=== PATIENT | male | born 1970 | race Caucasian/White ===

== ENCOUNTER 2016-09-11 16:56 | Emergency (ER) | payer SELFPAY ==
[~2016-09-11] VITALS: Ht 165.1 cm; Wt 61.2 kg
[~2016-09-11 16:56] MED LIST: CIPRO 500MG TA500 MG PO
[2016-09-11 17:26] LABS: HEMOGLOBIN 15.8 g/dL (14.1-18.0); LYMPH # 2.8 K/mm3 (0.7-4.5); LYMPH % 22.2 % (10-50)
--- NOTE | 2016-09-11 17:32 | Emergency Room Report ---
History of Present Illness Time Seen by [id number] Presenting Problem in Triage Pt arrived:Walked Presenting Problem:PT REPORTS TINGLING SENSATION IN SEA HANDS AND UP R ARM. PT REPORTS FEELING TINGLING IN R FOOT. PT REPORTS HE WOKE UP WITH SYMPTOMS ON MONDAY, REPORTS HE FELT LIKE HIS R LEG WAS ASLEEP ON MONDAY WHEN HE WOKE UP BUT STATES AND LIKE HE HAD NO CONTROL OVER R LEG, STATES THIS LASTED APPROX 1 HOUR AND STATES SYMPTOMS DESCRIBED ABOVE HAVE BEEN INTERMITTENT SINCE MONDAY. 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 N Clinical Suspician of Infection? N Mental Status: 1 - Regular (Normal Baseline) Sepsis Risk:Low Sepsis Risk Have you (or family members/close friends) recently traveled outside the [place]? N If Yes, where/when: Have you had exposure to infectious disease within the past month? N TB? Other? Specify: 45-year-old white male with history of migraine woke up 2 days ago with RIGHT ankle weakness and the RIGHT hemianesthesia. The weakness is that the numbness on the RIGHT side of the body continue. IT FEELS LIKE A burning sensation. He had occasional sharp chest pain to the LEFT side of the chest, NO PALPITATION, NO SOA, NO NVD. THE PATIENT INFORMED ME THAT THE NUMBNESS CHANGES WITH HIS NECK MOVEMENT. HE HAS A CHRONIC NECK PAIN. Source patient, RN notes reviewed Exam Limitations no limitations ALLERGIES Coded Allergies: metoclopramide (From REGLAN) (Mild, 06/27/15) Home Medications Reported Medications No Known Home Medications History Medical History General CAD? No Angina: No PR: No Hypertension? No Hyperlipidemia? No CHF? No DVT? No PE? No COPD? No Asthma? No Anemia? No GERD? No Gastric ulcers? Yes GI Bleed? No Hernia? No Thyroid Problems? No Hypothyroidism? No CVA? No Seizures? No Diabetes? No Renal Insuffiency? No End Stage Renal Disease? No UTI? No Stones? No BPH? No GB Disease: No Nephritic Syndrome? No Asplenia? No Hepatitis? No Sickle Cell Disease? No Arthritis? No Migraines? Yes Cataracts? No Glaucoma? No MRSA? No HIV? No TB? No Anxiety? No Depression? No Cancer? No More? 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 Respiratory no symptoms reported Cardiovascular no symptoms reported Gastrointestinal no symptoms reported Genitourinary no symptoms reported. Musculoskeletal no symptoms reported Skin no symptoms reported Psychiatric/Neurological see HPI, numbness Physical Exam Vital Signs Vital Signs Date Time Temp Pulse Resp B/P Pulse O2 O2 Flow FiO2 Ox Delivery Rate 09/11 1756 98.2 61 18 121/74 98 09/11 1703 98.0 81 18 158/102 98 - WBC >12,000 or <4,000 or 10% bands? 2 or more SIRS Criteria Met? B/P:158/102 MAP:120 Creatinine >2.0? UA output<0.5ml/kg/hr for 2 hrs? Platelet count >100,000? Lactate >2.0mmol/1? INR >1.2 or PTT > than 60 sec? Evidence of Organ Dysfunction? Provider documented clinical suspician of infection? N Sepsis Criteria Count: 0 Sepsis Risk: Low Sepsis Risk General Appearance normal appearance, WD/WN Eye Exam - bilateral eye normal exam, bilateral eye PERRL, bilateral eye EOMI Ear, Nose, Throat hearing grossly normal, normal ENT inspection Neck normal inspection, non-tender, supple, full range of motion Respiratory Status Yes: trachea midline, chest symmetrical, non tender chest. No: respiratory distress. Lung Sounds bilateral: normal breath sounds, lungs clear. Cardiovascular normal exam, regular rate/rhythm, no peripheral edema, no gallop, no JVD, no murmur, no rub, normal peripheral pulses Peripheral Pulses Pulses normal Yes Gastrointestinal normal bowel sounds, normal exam, non tender, soft, no organomegaly Back normal inspection, no CVA tenderness, no vertebral tenderness Extremities non-tender, normal range of motion, normal inspection Neurologic alert, staff development educator II-XII nml as tested, normal exam, oriented x 3, INTACT CRANIAL NERVES MOTORO 5/5 BILATERAL AND SYMMETRICAL R HEMIANESTHESIA NEGATIVE ROMBERGISM AND CEREBALLR FUNCTION. WALKED TANDEM. Reflexes Reflexes normal Yes Skin intact, normal color, warm/dry Medical Decision Making LABS/Meds/Orders Pt receiving controlled substance in ED? No Results/Orders Laboratory Tests 09/11/161711: Creatine Kinase 86, CK-MB (CK-2) Rel Index 0.6, CK and CKMB Interp < 0.5, Troponin I < 0.02 09/11/161711: Sodium 138, Potassium 3.7, Chloride 101, Carbon Dioxide 31, BUN 12, Creatinine 1.1, Estimated Creat Clear 72, Estimated GFR (MDRD) 72, Glucose 154 H, Calcium 8.9, Total Bilirubin 0.3, AST 15, ALT 20, Alkaline Phosphatase 73, Total Protein 7.9, Albumin 4.1, Globulin 3.8 H, Albumin/Globulin Ratio 1.1, D-Dimer < 100, WBC 12.6 H, RBC 5.17, Hgb 15.8, Hct 47.3, MCV 91.5, RDW 13.9, Plt Count 358, MPV 7.8, Gran % 69.0, Gran # 8.7 H, Lymphocytes % 22.2, Monocytes % 3.0, Eosinophils % 4.8, Basophils % 1.0, Lymphocytes # 2.8, Monocytes # 0.4, Eosinophils # 0.6 H, Basophils # 0.1, PUBS MCHC 33.4, MCH 30.5 Current Medication Orders Sig/Danni Start time Last Medication Dose Route Stop Time Status Admin Sodium Chloride 10 ML PRN PRN 09/11 1730 AC IV 09/12 1717 Orders Procedure Date/time Status DIET-NOTHING BY MOUTH 09/12 B Active [id number] FAT/LO CHO/ROMAN 09/12 B Active DRUG ABUSE SCREEN (10) 09/11 1843 Active CARDIAC ENZYMES 09/11 1801 Complete ELECTROCARDIOGRAM REQUEST 09/[address] HEAD REQ 09/11 172 Complete D-DIMER 09/11 172 Complete IV SALINE LOCK 09/11 171 Active CBC WITH AUTO DIFF 09/11 171 Complete CHEM 12 PROFILE 09/11 171 Complete 12 LEAD EKG-HARIKA (INITIAL) 09/11 UNK Active CM/EKG CM/EKG EKG NORMAL SINUS RHYTHM 76/M right AXIS DEVIATION BUNDLE BRANCH BLOCK NO ACUTE FINDING Departure Departure Time of Disposition 1731 Disposition DC[facility] ER to [facility].. Hosp Clinical Impression Primary Impression: Hemianesthesia Secondary Impressions: Abnormal EKG, Cervical radiculopathy, CVA (cerebral vascular accident) Condition STABLE Additional Instructions I DISCUSSED WITH THE PATIENT HIS CT LABS AND EXAM . I CALLED [facility] WHO ADVISED TO SEND HIM FOR WORK UP , MRI HEAD AND CERVICAL REGION TO DIAGNOSE HIM. I DISCUSSED WITH THE PATIENT WHO WAS AGREEABL BUT HE DECLINED AN AMBULANCE TRANSPORT, HE WNATS TO GO WITH FAMILY , HE UNDERSTANDS THE RISKS. WILI RINCON. Discharge Counseling Counseled pt/family regarding diagnosis, test results, home care, follow up needs Prescriptions Current Visit Scripts No Known Home Medications ED Critical Care Critical Care No If Critical Care minutes are documented, the time involved in the performance of seperately reportable procedures was not counted toward critical care time documented. I directly delivered medical care to this critically ill and/or injured patient. Timely evaluation and treatment was necessary to address the significant organ system(s) dysfunction present in this patient. at 184
--- NOTE | 2016-09-11 18:03 | RADIOLOGY REPORT PS360 ---
CT HEAD WITHOUT CONTRAST CT BONE WINDOWS included ORDERING PHYSICIAN : Phoenix Regalado MD PATIENT AGE: 46 years GENDER: Male PROCEDURE: Routine axial images headwithout contrast. Brain & bone windows HISTORY: R HEMIANESTHESIA numbness both hands. And right leg COMPARISON: None available FINDINGS: No acute intracranial findings. No hemorrhage. No mass effect or mass lesion. No subdural nor extra-axial collection. Ventricles & basal cisterns appear satisfactory. Ragland & white matter patterns satisfactory. The posterior fossa appear satisfactory and unremarkable. The skull is intact. Only note minor mucosal thickening at the inferior right frontal sinus and at the ethmoid air cells bilaterally. No air-fluid levels.. Mastoid air cells, middle ear & IACs are unremarkable. IMPRESSION: No acute intracranial findings. Brain within normal limits.. Skull intact
[2016-09-11 19:04] VITALS: BP 137/97
--- OUTSIDE RECORDS SUMMARY | 2016-09-12 19:19 | External Medical Summary Rpt ---
Author Author , FLORENCE HENRIQUEZ Address Unknown Phone [email or web address] Care Team Providers Care Operational Meteorologist Name Role Phone DEBBIE MAR, DEBBIE Unavailable Unavailable [facility], Unavailable Unavailable [facility] Unavailable Unavailable INC, [facility], [facility] Unavailable Unavailable [facility] Unavailable Unavailable [facility], [facility], Unavailable Unavailable [facility], [facility]available Unavailable [facility], [facility] Unavailable Un[facility] Unavailable Unavailable H[facility]PITALS, [facility] Unavailable Unavailable Purpose Continuity of Care Document - 06-07-2012 through 2016 Problems Code Diagnosis DOS Provider Status [id number] MIGRAINE 06-27-2015 [facility] NOT PHYSICIANS, INTRACT W/O PLLC STATUS MIGRAINOSUS Z720 TOBACCO USE 06-27-2015 [facility] R51 HEADACHE 05-22-2015 [facility] 7840 HEADACHE 11-08-2013 [facility] 4619 ACUTE 10-29-2013 [facility] SINUSITIS, N EMERGENCY UNSPECIFIED PHYS 4660 ACUTE 10-29-2013 [facility] 470 DEVIATED 10-29-2013 [facility] 4732 CHRONIC 10-29-2013 [facility] 18582 OBST 10-29-2013 [facility] CHRONIC N EMERGENCY BRONCHITIS PHYS W/ACUTE BRONCHITIS 496 CHRONIC 10-29-2013 [facility] OBSTRUCTION NEC 7842 SWELLING 10-29-2013 [facility] IN [facility] HEAD AND NECK 89753 SHORTNESS 10-29-2013 [facility] 7862 COUGH 10-29-2013 [facility] G43.909 MIGRAINE, UNSP, NOT INTRACTABLE , WITHOUT STATUS MIGRAINOSUS I63.9 CEREBRAL INFARCTION, UNSPECIFIED M54.12 RADICULOPAT HY, CERVICAL REGION R20.0 ANESTHESIA OF SKIN R94.31 ABNORMAL ELECTROCARD IOGRAM [ECG] [EKG] Results Labs Lab Lab Date Result Refere Interp Status Commen Order Detail nces retati t Range on BASIC METABOLIC PANEL BMP (06-13-2012 04:20) BUN/CRE 8 ratio 6 - 25 complet RATIO 013 ed 04:20 CALCIUM 8.4 8.50 - Below complet 013 mg/dl 10.10 low ed 04:20 normal GFR 60 complet 013 ml/min ed 04:20 AGE 05 41 yrs complet 013 ed 04:20 CREATIN 1.0 0.60 - complet INE 013 mg/dl 1.30 ed 04:20 BUN 8 mg/dl 7 - 18 complet 013 ed 04:20 GLUCOSE 121 70 - Above complet 013 mg/dl 120 high ed 04:20 normal ANION 11 5 - 15 complet GAP 013 mmol/L ed 04:20 TOTAL 27 21 - 32 complet CO2 013 mmol/L ed 04:20 CHLORID 100 98 - complet E 013 mmol/L 107 ed 04:20 POTASSI 4.0 3.50 - complet UM 013 mmol/L 5.10 ed 04:20 SODIUM 134 136 - Below complet 013 mmol/L 145 low ed 04:20 normal OSMOLAL 268 272 - Below complet ITY 013 295 low ed 04:20 normal GLOMERU complet 013 LAR ed 04:20 FILTRAT ION RATE INTERPR ETATION Normal complet 013 Range: ed 04:20 60 Ml/min/ 1.73 sq meters If complet 013 patient ed 04:20 is Ade n, multipl y GFR by 1.120. *GFR complet 013 only ed 04:20 applies to adults over the age 18. CBC W DIFF AUTOMATED (06-13-2012 04:20) MO# 06-13-2 1.10 0.00 - Above complet 013 K/uL 0.90 high ed 04:20 normal LY# 06-13-2 1.74 0.60 - complet 013 K/uL 3.40 ed 04:20 BA% 05-08-2 0.80 % 0.00 - complet 013 2.50 ed 04:20 EO% 05-08-2 6.70 % 0.00 - complet 013 7.00 ed 04:20 NE% 05-08-2 64.8 % 37.0 - complet 013 80.0 ed 04:20 MO% 05-08-2 10.7 % 0.0 - complet 013 12.0 ed 04:20 LY% 05-08-2 17.0 % 10.0 - complet 013 50.0 ed 04:20 PLT 05-08-2 316 142 - complet 013 K/uL 424 ed 04:20 RDW 05-08-2 13.2 % 11.60 - complet 013 14.80 ed 04:20 MCHC 05-08-2 34.1 31.80 - complet 013 g/dL 35.40 ed 04:20 MCH 05-08-2 30.1 pg 27.0 - complet 013 31.20 ed 04:20 MCV 05-08-2 88.3 fL 80.0 - complet 013 97.0 ed 04:20 HCT 05-08-2 36 % 37.70 - Below complet 013 53.70 low ed 04:20 normal HGB 05-08-2 12.1 12.20 - Below complet 013 g/dL 18.10 low ed 04:20 normal RBC 05-08-2 4.02 4.04 - Below complet 013 M/uL 6.13 low ed 04:20 normal WBC 05-08-2 10.3 4.60 - Above complet 013 K/uL 10.20 high ed 04:20 normal Manual 05-08-2 NOT complet Diff 013 INDICAT ed 04:20 ED BA# 05-08-2 0.08 0.00 - complet 013 K/uL 0.20 ed 04:20 EO# 05-08-2 0.69 0.00 - complet 013 K/uL 0.70 ed 04:20 NE# 05-08-2 6.64 2.00 - complet 013 K/uL 6.90 ed 04:20 BASIC METABOLIC PANEL BMP (06-11-2012 04:45) ANION -06-2 12 5 - 15 complet GAP 013 mmol/L ed 04:45 *GFR complet 013 only ed 04:45 applies to adults over the age 18. 06-11- If complet 013 patient ed 04:45 is Ade n, multipl y GFR by 1.120. Normal complet 013 Range: ed 04:45 60 Ml/min/ 1.73 sq meters \E\BLDo complet 013 \E\GLOM ed 04:45 ERULAR FILTRAT ION RATE INTERPR ETATION \E\BLDx \E\ OSMOLAL 269 272 - Below complet ITY 013 295 low ed 04:45 normal BUN/CRE 7 ratio 6 - 25 complet RATIO 013 ed 04:45 CALCIUM 8.7 8.50 - complet 013 mg/dl 10.10 ed 04:45 GFR 60 complet 013 ml/min ed 04:45 AGE 05 41 yrs complet 013 ed 04:45 CREATIN 1.1 0.60 - complet INE 013 mg/dl 1.30 ed 04:45 BUN 8 mg/dl 7 - 18 complet 013 ed 04:45 GLUCOSE 112 70 - complet 013 mg/dl 120 ed 04:45 TOTAL 28 21 - 32 complet CO2 013 mmol/L ed 04:45 CHLORID 99 98 - complet E 013 mmol/L 107 ed 04:45 POTASSI 3.8 3.50 - complet UM 013 mmol/L 5.10 ed 04:45 SODIUM 135 136 - Below complet 013 mmol/L 145 low ed 04:45 normal CBC W DIFF AUTOMATED (06-11-2012 04:45) EO# 06-11-2 0.47 0.00 - complet 013 K/uL 0.70 ed 04:45 Manual NOT complet Diff 013 INDICAT ed 04:45 ED BA# 06-11-2 0.09 0.00 - complet 013 K/uL 0.20 ed 04:45 NE# 06-11-2 9.66 2.00 - Above complet 013 K/uL 6.90 high ed 04:45 normal MO# 06-11-2 0.94 0.00 - Above complet 013 K/uL 0.90 high ed 04:45 normal LY# 06-11-2 1.76 0.60 - complet 013 K/uL 3.40 ed 04:45 BA% 05-06-2 0.70 % 0.00 - complet 013 2.50 ed 04:45 EO% 05-06-2 3.60 % 0.00 - complet 013 7.00 ed 04:45 NE% 05-06-2 74.8 % 37.0 - complet 013 80.0 ed 04:45 MO% 05-06-2 7.3 % 0.0 - complet 013 12.0 ed 04:45 LY% 05-06-2 13.6 % 10.0 - complet 013 50.0 ed 04:45 PLT 05-06-2 310 142 - complet 013 K/uL 424 ed 04:45 RDW 05-06-2 13.5 % 11.60 - complet 013 14.80 ed 04:45 MCHC 05-06-2 33.9 31.80 - complet 013 g/dL 35.40 ed 04:45 MCH 05-06-2 30.3 pg 27.0 - complet 013 31.20 ed 04:45 MCV 05-06-2 89.4 fL 80.0 - complet 013 97.0 ed 04:45 HCT 05-06-2 39 % 37.70 - complet 013 53.70 ed 04:45 HGB 05-06-2 13.2 12.20 - complet 013 g/dL 18.10 ed 04:45 RBC 05-06-2 4.35 4.04 - complet 013 M/uL 6.13 ed 04:45 WBC 05-06-2 12.9 4.60 - Above complet 013 K/uL 10.20 high ed 04:45 normal CBC W DIFF AUTOMATED (06-10-2012 04:52) Manual 06-10-2 NOT complet Diff 013 INDICAT ed 04:52 ED BA# 05-05-2 0.06 0.00 - complet 013 K/uL 0.20 ed 04:52 EO# 05-05-2 0.22 0.00 - complet 013 K/uL 0.70 ed 04:52 NE# 05-05-2 12.06 2.00 - Above complet 013 K/uL 6.90 high ed 04:52 normal MO# 05-05-2 0.83 0.00 - complet 013 K/uL 0.90 ed 04:52 LY# 05-05-2 1.80 0.60 - complet 013 K/uL 3.40 ed 04:52 BA% 05-05-2 0.40 % 0.00 - complet 013 2.50 ed 04:52 EO% 05-05-2 1.50 % 0.00 - complet 013 7.00 ed 04:52 NE% 05-05-2 80.6 % 37.0 - Above complet 013 80.0 high ed 04:52 normal MO% 05-05-2 5.5 % 0.0 - complet 013 12.0 ed 04:52 LY% 05-05-2 12.0 % 10.0 - complet 013 50.0 ed 04:52 PLT 05-05-2 247 142 - complet 013 K/uL 424 ed 04:52 RDW 05-05-2 14.0 % 11.60 - complet 013 14.80 ed 04:52 MCHC 05-05-2 33.5 31.80 - complet 013 g/dL 35.40 ed 04:52 MCH 05-05-2 30.5 pg 27.0 - complet 013 31.20 ed 04:52 MCV 05-05-2 91.0 fL 80.0 - complet 013 97.0 ed 04:52 HCT 05-05-2 38 % 37.70 - complet 013 53.70 ed 04:52 HGB 05-05-2 12.8 12.20 - complet 013 g/dL 18.10 ed 04:52 RBC 05-05-2 4.20 4.04 - complet 013 M/uL 6.13 ed 04:52 WBC -05-2 15.0 4.60 - Above complet 013 K/uL 10.20 high ed 04:52 normal BASIC METABOLIC PANEL [facility] (06-10-2012 04:52) *GFR complet 013 only ed 04:52 applies to adults over the age 18. If complet 013 patient ed 04:52 is Ade n, multipl y GFR by 1.120. Normal complet 013 Range: ed 04:52 60 Ml/min/ 1.73 sq meters \E\BLDo complet 013 \E\GLOM ed 04:52 ERULAR FILTRAT ION RATE INTERPR ETATION \E\BLDx \E\ OSMOLAL 270 272 - Below complet ITY 013 295 low ed 04:52 normal BUN/CRE 8 ratio 6 - 25 complet RATIO 013 ed 04:52 CALCIUM -05-2 8.4 8.50 - Below complet 013 mg/dl 10.10 low ed 04:52 normal GFR 06-10- 60 complet 013 ml/min ed 04:52 AGE [birth year]- 41 yrs complet 013 ed 04:52 CREATIN 05-2 1.3 0.60 - complet INE 013 mg/dl 1.30 ed 04:52 BUN 06-10-2 10 7 - 18 complet 013 mg/dl ed 04:52 GLUCOSE 06-10- 113 70 - complet 013 mg/dl 120 ed 04:52 ANION 05-2 10 5 - 15 complet GAP 013 mmol/L ed 04:52 TOTAL 06-10- 31 21 - 32 complet CO2 013 mmol/L ed 04:52 CHLORID 06-10- 98 98 - complet E 013 mmol/L 107 ed 04:52 POTASSI 06-10- 3.8 3.50 - complet UM 013 mmol/L 5.10 ed 04:52 SODIUM 06-10- 135 136 - Below complet 013 mmol/L 145 low ed 04:52 normal BASIC METABOLIC PANEL BMP (06-09-2012 05:44) CALCIUM 06-09-2 8.5 8.50 - complet 013 mg/dl 10.10 ed 05:44 GFR 06-09- 60 complet 013 ml/min ed 05:44 AGE 05 41 yrs complet 013 ed 05:44 CREATIN 2 1.3 0.60 - complet INE 013 mg/dl 1.30 ed 05:44 BUN 13 7 - 18 complet 013 mg/dl ed 05:44 GLUCOSE 06-09- 110 70 - complet 013 mg/dl 120 ed 05:44 ANION 06-09-2 11 5 - 15 complet GAP 013 mmol/L ed 05:44 TOTAL 06-09-2 29 21 - 32 complet CO2 013 mmol/L ed 05:44 CHLORID 06-09-2 101 98 - complet E 013 mmol/L 107 ed 05:44 POTASSI 06-09-2 3.9 3.50 - complet UM 013 mmol/L 5.10 ed 05:44 SODIUM 06-09-2 137 136 - complet 013 mmol/L 145 ed 05:44 *GFR complet 013 only ed 05:44 applies to adults over the age 18. 05-2 If complet 013 patient ed 05:44 is Ade n, multipl y GFR by 1.120. Normal complet 013 Range: ed 05:44 60 Ml/min/ 1.73 sq meters \E\BLDo complet 013 \E\GLOM ed 05:44 ERULAR FILTRAT ION RATE INTERPR ETATION \E\BLDx \E\ OSMOLAL 275 272 - complet ITY 013 295 ed 05:44 BUN/CRE 06-09-2 10 6 - 25 complet RATIO 013 ratio ed 05:44 CBC W DIFF AUTOMATED (06-09-2012 05:44) BA# 05-04-2 0.03 0.00 - complet 013 K/uL 0.20 ed 05:44 EO# 05-04-2 0.02 0.00 - complet 013 K/uL 0.70 ed 05:44 NE# 05-04-2 19.89 2.00 - Above complet 013 K/uL 6.90 high ed 05:44 normal MO# 05-04-2 1.59 0.00 - Above complet 013 K/uL 0.90 high ed 05:44 normal LY# 05-04-2 2.14 0.60 - complet 013 K/uL 3.40 ed 05:44 BA% -04-2 0.10 % 0.00 - complet 013 2.50 ed 05:44 EO% -04-2 0.10 % 0.00 - complet 013 7.00 ed 05:44 NE% 05-04-2 84.1 % 37.0 - Above complet 013 80.0 high ed 05:44 normal MO% 05-04-2 6.7 % 0.0 - complet 013 12.0 ed 05:44 LY% 05-04-2 9.0 % 10.0 - Below complet 013 50.0 low ed 05:44 normal PLT -04-2 277 142 - complet 013 K/uL 424 ed 05:44 RDW -04-2 14.2 % 11.60 - complet 013 14.80 ed 05:44 MCHC -04-2 34.0 31.80 - complet 013 g/dL 35.40 ed 05:44 MCH -04-2 30.8 pg 27.0 - complet 013 31.20 ed 05:44 MCV 05-04-2 90.4 fL 80.0 - complet 013 97.0 ed 05:44 HCT 05-04-2 39 % 37.70 - complet 013 53.70 ed 05:44 HGB -04-2 13.1 12.20 - complet 013 g/dL 18.10 ed 05:44 RBC 05-04-2 4.26 4.04 - complet 013 M/uL 6.13 ed 05:44 RBC -04-2 NORMAL complet Morph 013 ed 05:44 Platele 06-09-2 ADEQUAT complet t Est 013 E ed 05:44 BASOS --2 1 % 0 - 2 complet 013 ed 05:44 MONOS -04-2 4 % 0 - 12 complet 013 ed 05:44 LYMPHS -04-2 17 % 16 - 46 complet 013 ed 05:44 SEGS -04-2 78 % 40 - 75 Above complet 013 high ed 05:44 normal Manual --2 SEE complet Diff 013 BELOW ed 05:44 WBC -04-2 23.7 4.60 - Above complet 013 K/uL 10.20 high ed 05:44 normal CULTURE URINE (06-09-2012 01:06) SEND TO NO complet ER 013 ed 01:06 SEND YES complet PHARM/I 013 ed C 01:06 RESULT: NO complet 013 GROWTH ed 01:06 2ND DAY STATUS FINAL complet 013 ed 01:06 RESULT: NO complet 013 GROWTH ed 01:06 1ST DAY STATUS PRELIMI complet 013 NARY ed 01:06 COLLECT CLEAN complet ION: 013 CATCH ed 01:06 _CULTUR complet 013 E ed 01:06 URINE_ URINALYSIS COMPLETE AUTOMATED (06-09-2012 01:05) METH OF C CATCH complet ARLETTE 013 ed 01:05 Crystal NEGATIV NL: active s 013 E NEGATIV 01:05 E Casts NEGATIV NL: active 013 E NEGATIV 01:05 E Yeast NEGATIV NL: active 013 E NEGATIV 01:05 E Mucous 1+ NL: Abnorma complet 013 NEGATIV l ed 01:05 E Bacteri 05-04-2 TRACE NL: Abnorma complet a 013 NEGATIV l ed 01:05 E Epi 05-04-2 0 - 3 NL: complet Cells 013 NEGATIV ed 01:05 E Rbc 05-04-2 5 - 10 NL: Abnorma complet 013 NEGATIV l ed 01:05 E Wbc 05-04-2 5 - 10 NL: Abnorma complet 013 NEGATIV l ed 01:05 E MICROSC 05-04-2 See active OPIC 013 Below_ 01:05 Leukocy 05-04-2 NEG NL: complet mara 013 Negativ ed 01:05 e Nitrite 05-04-2 NEG NL: complet 013 Negativ ed 01:05 e Urobili 05-04-2 0.2 NL: 0.2 complet nogen 013 - 1.0 ed 01:05 Protein -04-2 NEG NL: complet 013 Negativ ed 01:05 e pH 05-04-2 6.0 NL: complet 013 ed 01:05 Blood 04-2 2+ NL: Abnorma complet 013 Negativ l ed 01:05 e Specifi 05-04-2 >=1.030 NL: complet c Gr 013 1.00 >= ed 01:05 1.030 Ketones -04-2 NEG NL: complet 013 Negativ ed 01:05 e Bilirub 04-2 NEG NL: complet in 013 Negativ ed 01:05 e Glucose -04-2 NEG NL: complet 013 Negativ ed 01:05 e Clarity 0504-2 HAZY NL: complet 013 Negativ ed 01:05 e Color 04-2 LT. NL: complet 013 YELL Negativ ed 01:05 e CULTURE 04-2 ROUTINE complet SETUP 013 O ed 01:05 CBC W DIFF AUTOMATED (06-08-2012 07:49) NE# 05-03-2 30.10 2.00 - Above complet 013 K/uL 6.90 high ed 07:49 normal MO# 05-03-2 1.22 0.00 - Above complet 013 K/uL 0.90 high ed 07:49 normal LY# 05-03-2 0.54 0.60 - Below complet 013 K/uL 3.40 low ed 07:49 normal BA% 05-03-2 0.10 % 0.00 - complet 013 2.50 ed 07:49 EO% 05-03-2 0.00 % 0.00 - complet 013 7.00 ed 07:49 NE% 05-03-2 94.4 % 37.0 - Above complet 013 80.0 high ed 07:49 normal MO% 05-03-2 3.8 % 0.0 - complet 013 12.0 ed 07:49 LY% 05-03-2 1.7 % 10.0 - Below complet 013 50.0 low ed 07:49 normal PLT 05-03-2 312 142 - complet 013 K/uL 424 ed 07:49 RDW 05-03-2 14.1 % 11.60 - complet 013 14.80 ed 07:49 MCHC 05-03-2 34.3 31.80 - complet 013 g/dL 35.40 ed 07:49 MCH 05-03-2 30.5 pg 27.0 - complet 013 31.20 ed 07:49 MCV 05-03-2 89.1 fL 80.0 - complet 013 97.0 ed 07:49 HCT 05-03-2 42 % 37.70 - complet 013 53.70 ed 07:49 HGB 05-03-2 14.5 12.20 - complet 013 g/dL 18.10 ed 07:49 RBC 05-03-2 4.75 4.04 - complet 013 M/uL 6.13 ed 07:49 RD BCK 05-03-2 K complet VRFY: 013 GREG@ ed 07:49 0853 [id number] CRW WBC 05-03-2 31.9 4.60 - Above complet 013 K/uL 10.20 upper ed 07:49 panic limits RBC 05-03-2 NORMAL complet Morph 013 ed 07:49 Platele 05-03-2 ADEQUAT complet t Est 013 E ed 07:49 BASOS 05-03-2 2 % 0 - 2 complet 013 ed 07:49 EOS 05-03-2 1 % 0 - 7 complet 013 ed 07:49 LYMPHS 05-03-2 4 % 16 - 46 Below complet 013 low ed 07:49 normal BANDS 05-03-2 11 % 0 - 8 Above complet 013 high ed 07:49 normal SEGS 05-03-2 82 % 40 - 75 Above complet 013 high ed 07:49 normal Manual 05-03-2 SEE complet Diff 013 BELOW ed 07:49 BA# 05-03-2 0.03 0.00 - complet 013 K/uL 0.20 ed 07:49 EO# 05-03-2 0.01 0.00 - complet 013 K/uL 0.70 ed 07:49 BASIC METABOLIC PANEL BMP (06-08-2012 07:49) SODIUM 03-2 136 136 - complet 013 mmol/L 145 ed 07:49 0503-2 *GFR complet 013 only ed 07:49 applies to adults over the age 18. If complet 013 patient ed 07:49 is Ade n, multipl y GFR by 1.120. 03 Normal complet 013 Range: ed 07:49 60 Ml/min/ 1.73 sq meters \E\BLDo complet 013 \E\GLOM ed 07:49 ERULAR FILTRAT ION RATE INTERPR ETATION \E\BLDx \E\ OSMOLAL 274 272 - complet ITY 013 295 ed 07:49 BUN/CRE 2 8 ratio 6 - 25 complet RATIO 013 ed 07:49 CALCIUM 03-2 7.8 8.50 - Below complet 013 mg/dl 10.10 low ed 07:49 normal GFR 03-2 60 complet 013 ml/min ed 07:49 AGE [birth year]2 41 yrs complet 013 ed 07:49 CREATIN 03-2 1.1 0.60 - complet INE 013 mg/dl 1.30 ed 07:49 BUN 03-2 9 mg/dl 7 - 18 complet 013 ed 07:49 GLUCOSE 03-2 150 70 - Above complet 013 mg/dl 120 high ed 07:49 normal ANION 03-2 13 5 - 15 complet GAP 013 mmol/L ed 07:49 TOTAL 03-2 24 21 - 32 complet CO2 013 mmol/L ed 07:49 CHLORID 06-08-2 103 98 - complet E 013 mmol/L 107 ed 07:49 POTASSI 06-08-2 4.1 3.50 - complet UM 013 mmol/L 5.10 ed 07:49 COMPREHENSIVE METABOLIC PANEL CMP (06-07-2012 21:40) *GFR complet 013 only ed 21:40 applies to adults over the age 18. 05-02-2 If complet 013 patient ed 21:40 is Ade n, multipl y GFR by 1.120. -02-2 Normal complet 013 Range: ed 21:40 60 Ml/min/ 1.73 sq meters 06-07-2 GLOMERU complet 013 LAR ed 21:40 FILTRAT ION RATE INTERPR ETATION A/G 2 1.2 1.0 - complet RATIO 013 ratio 3.90 ed 21:40 GLOBULI -02-2 3.4 1.30 - complet N 013 g/dl 3.50 ed 21:40 ALBUMIN -02-2 4.2 3.40 - complet 013 g/dl 5.0 ed 21:40 TOTAL 06-07-2 7.6 6.40 - complet PROTEIN 013 g/dl 8.20 ed 21:40 ALK -02-2 108 50 - complet PHOS 013 IU/L 136 ed 21:40 ALT 06-07- 31 IU/L 30 - 65 complet (SGPT) 013 ed 21:40 AST 06-07- 13 IU/L 15 - 37 Below complet (SGOT) 013 low ed 21:40 normal TOTAL 06-07-2 0.4 0.20 - complet SEA 013 mg/dl 1.0 ed 21:40 CALCIUM -02-2 8.9 8.50 - complet 013 mg/dl 10.10 ed 21:40 GFR 02-2 60 complet 013 ml/min ed 21:40 AGE [birth year]2 41 yrs complet 013 ed 21:40 CREATIN -02-2 1.2 0.60 - complet INE 013 mg/dl 1.30 ed 21:40 BUN -02-2 10 7 - 18 complet 013 mg/dl ed 21:40 GLUCOSE -02-2 127 70 - Above complet 013 mg/dl 120 high ed 21:40 normal ANION -02-2 13 5 - 15 complet GAP 013 mmol/L ed 21:40 TOTAL --2 29 21 - 32 complet CO2 013 mmol/L ed 21:40 CHLORID -02-2 99 98 - complet E 013 mmol/L 107 ed 21:40 POTASSI 06-07-2 4.4 3.50 - complet UM 013 mmol/L 5.10 ed 21:40 SODIUM -02-2 137 136 - complet 013 mmol/L 145 ed 21:40 CBC W DIFF AUTOMATED (06-07-2012 21:40) MO% 05-02-2 4.9 % 0.0 - complet 013 12.0 ed 21:40 LY% 05-02-2 6.9 % 10.0 - Below complet 013 50.0 low ed 21:40 normal PLT -02-2 376 142 - complet 013 K/uL 424 ed 21:40 RDW -02-2 14.0 % 11.60 - complet 013 14.80 ed 21:40 MCHC -02-2 34.9 31.80 - complet 013 g/dL 35.40 ed 21:40 MCH 05-02-2 31.1 pg 27.0 - complet 013 31.20 ed 21:40 MCV -02-2 89.1 fL 80.0 - complet 013 97.0 ed 21:40 HCT -02-2 46 % 37.70 - complet 013 53.70 ed 21:40 HGB -02-2 16.2 12.20 - complet 013 g/dL 18.10 ed 21:40 RBC -02-2 5.21 4.04 - complet 013 M/uL 6.13 ed 21:40 RD BCK 06-07-2 M.[place] complet VRFY: 013 N 2221 ed 21:40 5//13. WBC -02-2 30.1 4.60 - Above complet 013 K/uL 10.20 upper ed 21:40 panic limits Manual 06-07-2 SLIDE complet Diff 013 SCAN-OK ed 21:40 BA# 05-02-2 0.13 0.00 - complet 013 K/uL 0.20 ed 21:40 EO# 05-02-2 0.29 0.00 - complet 013 K/uL 0.70 ed 21:40 NE# 05-02-2 26.16 2.00 - Above complet 013 K/uL 6.90 high ed 21:40 normal MO# 05-02-2 1.47 0.00 - Above complet 013 K/uL 0.90 high ed 21:40 normal LY# 05-02-2 2.07 0.60 - complet 013 K/uL 3.40 ed 21:40 BA% 05-02-2 0.40 % 0.00 - complet 013 2.50 ed 21:40 EO% 05-02-2 1.00 % 0.00 - complet 013 7.00 ed 21:40 NE% 86.8 % 37.0 - Above complet 013 80.0 high ed 21:40 normal LIPASE (06-07-2012 21:40) LIPASE 181 U/L 73 - complet 013 393 ed 21:40 AMYLASE (06-07-2012 21:40) AMYLASE 95 IU/L 25 - complet 013 115 ed 21:40 Procedures Procedure DOS Code Location Performer Comment THERAPEUT 29015 SARA RUIZ IC [facility] TIC/DX INJECTION SUBQ/IM THER 23333 [facility]/DX 6 [facility] NJX IV E E PUSH [facility] SINGLE/1S T SBST/DRUG INJECTION J1100 [facility] 6 [facility] DEXAMETHO E E SONE [facility] SODIUM PHOSPHATE 1 MG INJECTION J2405 [facility] 6 [facility] ONDANSETR E E ON HCL [facility] PER 1 MG INJECTION J2765 [facility] 6 [facility] METOCLOPR E E AMIDE HCL [facility] UP TO 10 MG COMPREHEN 76897 [facility] SIVE 6 [facility] METABOLIC E E PANEL [facility] BLOOD 57800 [facility] COUNT 6 [facility] COMPLETE E E AUTOMATED [facility] THERAPEUT 58116 [facility] IC 6 [facility] INJECTION E E IV PUSH [facility] [place] [address] [facility] HEAD/BRAI 6 [facility] N W/O E E CONTRAST [facility] MATERIAL INJECTION J1200 [facility] 6 [facility] HEALTHCAR DIPHENHYD E E RAMINE [facility] HCL UP TO 50 MG INJECTION J1885 [facility] 6 [facility] HEALTHCAR KETOROLAC E E [facility] TROMETHAM INE PER 15 MG INFUSION J7030 [facility] NORMAL 6 [facility]ALTHCAR SALINE E E SOLUTION [facility] [address] [place] [address] [facility] LIPASE 6 [facility]ALTHCAR HEALTHCAR [place] [address] RADIOLOGY MAGNOLIA SEA MAXILLOFA 4 CIAL W/[place] [address] [facility] S[facility]VEIR[facility] MAXILLOFA 4 CO CO [facility] W/O HOSPITAL HOSPITAL CONTRAST MATERIAL RADIOLOGI 48925 [facility] SIL[facility] C EXAM 4 CO CO CHEST 2 [facility] VIEWS FRONTAL&L ATERAL BLOOD 20191 [facility] COUNT 4 CO CO [facility] AUTO&AUTO DIFRNTL WBC CULTURE 21218 [facility] BACTERIAL 4 CO CO [facility] AEROBIC W/ID ISOLATES INJ J2930 [facility] METHYLPRD 4 CO CO [facility] SODIUM SUCCNAT TO 125 MG PRESSURIZ 09130 [facility] ED/NONPRE 4 CO [facility] INHALATIO N TREATMENT CREATINE 21213 [facility]IL[facility] KINASE MB 4 CO CO [facility] ONLY CREATINE 15183 [facility] S[facility] KINASE 4 [facility] THER 95076 [facility] PROPH/DX 4 CO CO NJX IV [facility] PUSH SINGLE/1S T SBST/DRUG Encounters Encounter Start End Date Code Location Performer Type Date HOSPITAL S[facility] - 6 6 [facility] 74735 [facility] L[facility]MODER SEVERITY EMERGENCY 92680 CHANDNI IYER 6 6 [facility] T VISIT MODERATE SEVERITY [facility] - 6 6 [facility] EMERGENCY 82187 6 6 [facility] DEPART[facility] E T VISIT HOSPITALS HIGH/URGE NT SEVERITY EMERGENCY 68323 EMERGENCY [facility] 4 4 CARE DEPARTMEN PHYS T VISIT [facility] HIGH/URGE NT SEVERITY HOSPITAL RAOUL - [address] [facility] T EMERGENCY 68193 [facility] DEPT 4 4 [facility] MAR VISIT EMERGENCY HIGH PHYS SEVERITY& THREAT [facility] EMERGENCY 54519 [facility] 4 4 CO [facility] T VISIT HIGH/URGE NT SEVERITY
--- OUTSIDE RECORDS SUMMARY | 2016-09-12 19:19 | External Medical Summary Rpt ---
Author Author , FLORENCE HENRIQUEZ Address Unknown Phone [email or web address] Care Team Providers Care Senior Interactive Developer Name Role Phone DEBBIE MAR, DEBBIE Unavailable Unavailable [facility], Unavailable Unavailable [facility] Unavailable Unavailable INC, [facility] WALDEN SHIREEN, WALDEN SHIREEN Unavailable Unavailable [facility] Unavailable Unavailable ASSOCI, [facility], Unavailable Unavailable PLLC, [facility] Unavailable Unavailable OF [facility], [facility], [facility] Unavailable Unavailable [facility] Unavailable [facility]available HOSPITALS, [facility], [facility] Unavailable Unavailable Purpose Continuity of Care Document - 06-07-2012 through 2016 Problems Code Diagnosis DOS Provider Status [id number] MIGRAINE 06-27-2015 [facility] NOT PHYSICIANS, INTRACT W/O PLLC STATUS MIGRAINOSUS Z720 TOBACCO USE 06-27-2015 [facility] R51 HEADACHE 05-22-2015 [facility] 7840 HEADACHE 11-08-2013 [facility] 4619 ACUTE 10-29-2013 [facility] SINUSITIS, N EMERGENCY UNSPECIFIED PHYS 4660 ACUTE 10-29-2013 [facility] 470 DEVIATED 10-29-2013 [facility] SEPTUM ASSOCIAT 4732 CHRONIC 10-29-2013 [facility] SINUSITIS ASSOCIAT 14416 OBST 10-29-2013 [facility] CHRONIC N EMERGENCY BRONCHITIS PHYS W/ACUTE BRONCHITIS 496 CHRONIC 10-29-2013 [facility] OBSTRUCTION NEC 7842 SWELLING 10-29-2013 [facility] M[facility] OR [facility] [place] IN ASSOCIAT HEAD AND NECK 12659 SHORTNESS 10-29-2013 [facility] 7862 COUGH 10-29-2013 [facility] G43.909 MIGRAINE, UNSP, NOT INTRACTABLE [...] high ed 04:52 normal BASIC METABOLIC PANEL [facility] (06-10-2012 04:52) *GFR complet 013 only ed [...] complet VRFY: 013 GREG@ ed 07:49 0853 [id number] CRW WBC 05-03-2 31.9 4.60 - Above [...] Procedure DOS Code Location Performer Comment THERAPEUT 88753 SARA RUIZ IC 6 [facility] PROPHYLAC INC INC TIC/DX INJECTION SUBQ/IM THER 24302 [facility] PROPH/DX 6 [facility] NJX IV E E [facility] SINGLE/1S T SBST/DRUG INJECTION J1100 [facility] 6 [facility] DEXAMETHO E E [facility] SODIUM PHOSPHATE 1 MG INJECTION J2405 [facility] UK 6 [facility] ONDANSETR E E ON [facility] PER 1 MG INJECTION J2765 [facility] 6 [facility] METOCLOPR E E [facility] UP TO 10 MG COMPREHEN 36907 [facility] SIVE 6 [facility] METABOLIC E E [facility]EL [facility] BLOOD 65137 [facility] COUNT 6 [facility] COMPLETE E E [facility] THERAPEUT 80361 [facility] IC 6 [facility] HEALTHCAR INJECTION E E IV [facility]USH [facility] [place] [address] [facility] HEAD/BRAI 6 [facility] HE[facility]CAR N W/O E E [facility] MATERIAL INJECTION J1200 UK UK 6 [facility] HEALTHCAR DIPHENHYD E E [facility] HCL UP TO 50 MG INJECTION J1885 UK UK 6 [facility] HE[facility] KETOROLAC E E [facility] TROMETHAM INE PER 15 MG INFUSION J7030 [facility] NORMAL 6 [facility] SALINE E E [facility] [address] [place] [address] [facility] UK LIPASE 6 [facility] [address] RADIOLOGY SUN[place] SEA MAXILLOFA 4 CIAL W/[place] [address] RAOUL SILVEIRA MAXILLOFA 4 CO CO CIAL W/O HOSPITAL HOSPITAL CONTRAST MATERIAL RADIOLOGI 33305 RAOUL SILVEIRA C EXAM 4 CO CO CHEST 2 [facility] VIEWS FRONTAL&L ATERAL BLOOD 90026 RAOUL SILVEIRA COUNT 4 CO CO [facility] AUTO&AUTO DIFRNTL WBC CULTURE 05951 RAOUL SILVEIRA BACTERIAL 4 CO CO [facility] AEROBIC W/ID ISOLATES INJ J2930 RAOUL SILVEIRA METHYLPRD 4 CO CO [facility] SODIUM SUCCNAT TO 125 MG PRESSURIZ 03710 RAOUL SILVEIRA ED/NONPRE 4 CO CO [facility] INHALATIO N TREATMENT CREATINE 59267 RAOUL SILVEIRA KINASE MB 4 CO CO [facility] ONLY CREATINE 59951 RAOUL SILVEIRA KINASE 4 CO [facility] THER 22653 RAOUL SILVEIRA PROPH/DX 4 CO CO NJX IV [facility] HOSPITAL PUSH SINGLE/1S T SBST/DRUG Encounters Encounter Start End Date Code Location Performer Type Date HOSPITAL SARA - 6 6 [facility] T EMERGENCY 23806 [facility] 6 6 [facility] LOW/MODER SEVERITY EMERGENCY 26820 CHANDNI IYER 6 6 PHYSICIAN DEPARTMEN S, PLLC T VISIT MODERATE SEVERITY HOSPITAL - 6 6 [facility] OUTPATIEN E T HOSPITALS EMERGENCY 69937 6 6 [facility] DEPARTMEN E T VISIT HOSPITALS HIGH/URGE NT SEVERITY EMERGENCY 97753 EMERGENCY [facility] 4 4 CARE DEPARTMEN PHYS T VISIT [facility] HIGH/URGE NT SEVERITY HOSPITAL RAOUL - 4 4 CO [facility] T EMERGENCY 53509 [facility] DEPT 4 4 SHAWN MAR VISIT EMERGENCY HIGH PHYS SEVERITY& THREAT [facility] 68553 RAOUL 4 4 CO [facility] T VISIT HIGH/URGE NT SEVERITY
--- OUTSIDE RECORDS SUMMARY | 2016-09-12 19:20 | External Medical Summary Rpt ---
Author Author , FLORENCE HENRIQUEZ Address Unknown Phone [email or web address] Care Team Providers Care Caseworker Protective Services Name Role Phone DEBBIE MAR, DEBBIE Unavailable Unavailable [facility], Unavailable Unavailable [facility] Unavailable Unavailable INC, [facility] WALDEN SHIREEN, WALDEN SHIREEN Unavailable Unavailable [facility] Unavailable Unavailable ASSOCI, [facility], Unavailable Unavailable PLLC, [facility] Unavailable Unavailable [facility], [facility], [facility] Unavailable Unavailable [facility] Unavailable Unavailable HOSPITALS, [facility] HOSPITALS [facility], [facility] Unavailable Unavailable Purpose Continuity of Care Document - 10-29-2013 through 2016 Problems Code Diagnosis DOS Provider Status [id number] MIGRAINE 06-27-2015 [facility] NOT PHYSICIANS, INTRACT W/O PLLC STATUS MIGRAINOSUS Z720 TOBACCO USE 06-27-2015 [facility] R51 HEADACHE 05-22-2015 [facility] 7840 HEADACHE 11-08-2013 [facility] 4619 ACUTE 10-29-2013 [facility] SINUSITIS, N EMERGENCY UNSPECIFIED PHYS 4660 ACUTE 10-29-2013 [facility] 470 DEVIATED 10-29-2013 [facility] SEPTUM ASSOCIAT 4732 CHRONIC 10-29-2013 [facility] SINUSITIS ASSOCIAT 11522 OBST 10-29-2013 [facility] CHRONIC N EMERGENCY BRONCHITIS PHYS W/ACUTE BRONCHITIS 496 CHRONIC 10-29-2013 [facility] OBSTRUCTION NEC 7842 SWELLING 10-29-2013 [facility] [place] IN ASSOCIAT HEAD AND NECK 25036 SHORTNESS 10-29-2013 [facility] OF BREATH [facility] 7862 COUGH 10-29-2013 [facility] Procedures Procedure DOS Code Location Performer Comment THERAPEUT 03972 [facility] IC 6 [facility] PROPHYLAC INC INC TIC/DX INJECTION SUBQ/IM THER 88459 [facility] PROPH/DX 6 HEALTHCAR HEALTHCAR NJX IV E E PUSH [facility]PITALS SINGLE/1S T SBST/DRUG BLOOD 95566 [facility] COUNT 6 [facility]ALTHCAR HEALTHCAR COMPLETE E E [facility] HOSPITALS INJECTION J2405 [facility] UK 6 HEALTHCAR HEALTHCAR ONDANSETR E E ON HCL HOSPITALS HOSPITALS PER 1 MG INJECTION J2765 [facility] UK 6 HEALTHCAR HEALTHCAR METOCLOPR E E [facility] HOSPITALS [place] [address] [place] [address] UK UK HEAD/BRAI 6 HEALTHCAR HEALTHCAR N W/O E E [facility]AST [facility] HOSPITALS MATERIAL INJECTION J1200 UK UK 6 HEALTHCAR HEALTHCAR DIPHENHYD E E RAMINE [facility]ALS HCL UP TO 50 MG INJECTION J1885 UK UK 6 HEALTHCAR HEALTHCAR KETOROLAC E E HOSPITALS HOSPITALS TROMETHAM INE PER 15 MG INFUSION J7030 [facility] NORMAL 6 [facility]ALTHCAR HEALTHCAR SALINE E E SOLUTION [facility] 1000 CC COMPREHEN 79045 UK UK SIVE 6 [facility]ALTHCAR HEALTHCAR METABOLIC E E PANEL [facility] [place] [address] UK UK LIPASE 6 HEALTHCAR HEALTHCAR E E HOSPITALS HOSPITALS INJECTION J1100 UK UK 6 HEALTHCAR HEALTHCAR DEXAMETHO E E SONE [facility] SODIUM PHOSPHATE 1 MG THERAPEUT 62922 [facility] UK IC 6 HEALTHCAR HEALTHCAR INJECTION E E IV PUSH [facility] [place] [address] RADIOLOGY [place] SEA MAXILLOFA 4 CIAL W/O ASSOCIATE CONTRAST S OF NOTH MATERIAL RADIOLOGI 36138 SILVEIRAMILANA SILVEIRA C EXAM 4 CO CO CHEST 2 [facility] VIEWS FRONTAL&L ATERAL BLOOD 44933 SILVEIRA SILVEIRA COUNT 4 CO CO COMPLETE [facility] AUTO&AUTO DIFRNTL WBC CREATINE 00105 SILVEIRA SILVEIRA KINASE MB 4 CO CO FRACTION [facility]OSP[facility] ONLY CREATINE 25936 SILVEIRA SILVEIRA KINASE 4 CO CO TOTAL [facility] CULTURE 27390 SILVEIRA SILVEIRA BACTERIAL 4 CO CO BLOOD [facility] AEROBIC W/ID ISOLATES INJ J2930 SILVEIRA SILVEIRA METHYLPRD 4 CO [facility] SUCCNAT TO 125 MG PRESSURIZ 11900 RAOUL SILVEIRA ED/NONPRE 4 [facility] [place] [address] RAOUL SILVEIRA MAXILLOFA 4 CO CO CIAL W/O [facility] CONTRAST MATERIAL THER 03780 RAOUL SILVEIRA PROPH/DX 4 CO CO NJX IV [facility] PUSH SINGLE/1S T SBST/DRUG Encounters Encounter Start End Date Code Location Performer Type Date EMERGENCY 09362 SARA 6 6 MEM [facility] DEPARTMEN INC T VISIT LOW/MODER SEVERITY HOSPITAL SARA - 6 6 [facility] OUTPATIEN INC T EMERGENCY 44068 CHANDNI IYER 6 6 PHYSICIAN DEPARTMEN S, PLLC T VISIT MODERATE SEVERITY HOSPITAL - 6 6 [facility] OUTPATIEN E T HOSPITALS EMERGENCY 12374 6 6 [facility]ALTHCAR DEPARTMEN E T VISIT HOSPITALS HIGH/URGE NT SEVERITY EMERGENCY 46144 EMERGENCY [facility] 4 4 CARE DEPARTMEN PHYS T VISIT [facility] HIGH/URGE NT SEVERITY EMERGENCY 91953 [place] 4 4 CO [facility] HOSPITAL T VISIT HIGH/URGE NT SEVERITY EMERGENCY 82838 [facility] DEPT 4 4 SHAWN MAR VISIT EMERGENCY HIGH PHYS SEVERITY& THREAT [facility] RAOUL - 4 4 CO [facility] H[facility]PITAL T
--- OUTSIDE RECORDS SUMMARY | 2016-09-12 19:20 | External Medical Summary Rpt ---
Author Author FLORENCE Mireles, FLORENCE Mireles Organization [employer] Address Unknown Phone Unavailable
--- OUTSIDE RECORDS SUMMARY | 2016-09-12 19:20 | External Medical Summary Rpt ---
Demographics Preferred Language Ukrainian Marital Status Unknown Uatsdin Affiliation Unknown Race Unknown Ethnic Group Unknown Author Author FLORENCE Address Unknown Phone Immunization No patient found.
--- OUTSIDE RECORDS SUMMARY | 2016-09-12 19:20 | External Medical Summary Rpt ---
Demographics Preferred Language Maori Marital Status Unknown Evangelical Affiliation Unknown Race Unknown Ethnic Group Unknown Author Author FLORENCE Address Unknown Phone Immunization No patient found.
--- OUTSIDE RECORDS SUMMARY | 2016-09-12 19:20 | External Medical Summary Rpt ---
Author Author , FLORENCE HENRIQUEZ Address Unknown Phone [email or web address] Care Team Providers Care Licensing Representative Name Role Phone DEBBIE MAR, DEBBIE Unavailable Unavailable [facility], Unavailable Unavailable [facility] Unavailable Unavailable INC, [facility] WALDEN SHIREEN, WALDEN SHIREEN Unavailable Unavailable [facility] Unavailable Unavailable ASSOCI, [facility], Unavailable Unavailable PLLC, [facility] Unavailable Unavailable [facility], [facility], [facility] Unavailable Unavailable [facility] Unavailable Unavailable HOSPITALS, [facility] Unavailable Unavailable Purpose Continuity of Care Document - 10-29-2013 through 2016 Problems Code Diagnosis DOS Provider Status [id number] MIGRAINE 06-27-2015 [facility] NOT PHYSICIANS, INTRACT W/O PLLC STATUS MIGRAINOSUS Z720 TOBACCO USE 06-27-2015 [facility] INC R51 HEADACHE 05-22-2015 [facility] HOSPITALS 7840 HEADACHE 11-08-2013 [facility] 4619 ACUTE 10-29-2013 [facility] SINUSITIS, N EMERGENCY UNSPECIFIED PHYS 4660 ACUTE 10-29-2013 [facility] 470 DEVIATED 10-29-2013 [facility] SEPTUM ASSOCIAT 4732 CHRONIC 10-29-2013 [facility] ETH[facility] SINUSITIS ASSOCIAT 99591 OBST 10-29-2013 [facility] CHRONIC N EMERGENCY BRONCHITIS PHYS W/ACUTE BRONCHITIS 496 CHRONIC 10-29-2013 [facility] OBSTRUCTION NEC 7842 SWELLING 10-29-2013 [facility] MASS OR RADI[facility] LUMP IN ASSOCIAT HEAD AND NECK 19552 SHORTNESS 10-29-2013 [facility] OF BREATH RADIOLOGY ASSOCIAT 7862 COUGH 10-29-2013 [facility] Procedures Procedure DOS Code Location Performer Comment THERAPEUT 81524 [facility] IC 6 MEM HOS[facility] PROPHYLAC INC INC TIC/DX INJECTION SUBQ/IM THER 84731 [facility] PROPH/DX 6 [facility] HEALTHCAR NJX IV E E PUSH [facility] SINGLE/1S T SBST/DRUG BLOOD 35408 [facility] COUNT 6 HEALTHCAR HEALTHCAR COMPLETE E E [facility] HOSPITALS INJECTION J2405 UK UK 6 HEALTHCAR HEALTHCAR ONDANSETR E E ON HCL HOSPITALS HOSPITALS PER 1 MG INJECTION J2765 [facility] UK 6 HEALTHCAR HEALTHCAR METOCLOPR E E [facility] HOSPITALS [place] [address] [place] [address] UK UK HEAD/BRAI 6 HEALTHCAR HEALTHCAR N W/O E E CONTRAST [facility] HOSPITALS MATERIAL INJECTION J1200 UK UK 6 HEALTHCAR HEALTHCAR DIPHENHYD E E RAMINE [facility] HCL UP TO 50 MG INJECTION J1885 UK UK 6 HEALTHCAR HEALTHCAR KETOROLAC E E HOSPITALS HOSPITALS [place] INE PER 15 MG INFUSION J7030 UK UK NORMAL 6 [facility]ALTHCAR HEALTHCAR SALINE E E SOLUTION [facility] 1000 CC COMPREHEN 51255 UK UK SIVE 6 HEALTHCAR HEALTHCAR METABOLIC E E PANEL [facility] [address] UK UK LIPASE 6 HEALTHCAR HEALTHCAR E E HOSPITALS HOSPITALS INJECTION J1100 UK UK 6 HEALTHCAR HEALTHCAR DEXAMETHO E E SONE [facility] SODIUM PHOSPHATE 1 MG THERAPEUT 24252 UK UK IC 6 HEALTHCAR HEALTHCAR INJECTION E E IV PUSH [facility] [place] [address] RADIOLOGY SALINA SEA MAXILLOFA 4 CIAL W/O ASSOCIATE CONTRAST S OF NOTH MATERIAL RADIOLOGI 92449 SILVEIRAMILANA SILVEIRA C EXAM 4 CO CO CHEST 2 [facility] VIEWS FRONTAL&L ATERAL BLOOD 65793 SILVEIRA SILVEIRA COUNT 4 CO CO COMPLETE [facility] AUTO&AUTO DIFRNTL WBC CREATINE 88822 SILVEIRA SILVEIRA KINASE MB 4 CO CO FRACTION [facility]OSP[facility] ONLY CREATINE 01447 SILVEIRA SILVEIRA KINASE 4 CO CO TOTAL [facility] CULTURE 53775 SILVEIRA SILVEIRA BACTERIAL 4 CO CO BLOOD [facility] AEROBIC W/ID ISOLATES INJ J2930 SILVEIRA SILVEIRA METHYLPRD 4 CO CO [facility] SODIUM SUCCNAT TO 125 MG PRESSURIZ 83906 RAOUL SILVEIRA ED/NONPRE 4 CO [facility] [place] [address] RAOUL SILVEIRA MAXILLOFA 4 CO CO CIAL W/O [facility] CONTRAST MATERIAL THER 81138 RAOUL SILVEIRA PROPH/DX 4 CO CO NJX IV [facility] PUSH SINGLE/1S T SBST/DRUG Encounters Encounter Start End Date Code Location Performer Type Date EMERGENCY 87504 SARA 6 6 [facility] DEPARTMEN INC T VISIT LOW/MODER SEVERITY HOSPITAL SARA - 6 6 [facility] OUTPATIEN INC T EMERGENCY 08709 CHANDNI IYER 6 6 PHYSICIAN DEPARTMEN S, PLLC T VISIT MODERATE SEVERITY HOSPITAL - 6 6 [facility] OUTPATIEN E T HOSPITALS EMERGENCY 58296 6 6 [facility]ALTHCAR DEPARTMEN E T VISIT HOSPITALS HIGH/URGE NT SEVERITY EMERGENCY 51485 EMERGENCY [facility] 4 4 CARE DEPARTMEN PHYS T VISIT [facility] HIGH/URGE NT SEVERITY EMERGENCY 72099 [facility] 4 4 CO [facility] T VISIT HIGH/URGE NT SEVERITY EMERGENCY 33246 [facility] DEPT 4 4 SHAWN MAR VISIT EMERGENCY HIGH PHYS SEVERITY& THREAT [facility] RAOUL - 4 4 [facility] T
== END 2016-09-11 19:14 | disposition short-term general hospital (02) ==
LOC: ER 16:56
PROVIDERS: Emergency Medicine
DX: R20.0 Anesthesia of skin (principal); I63.9 Cerebral infarction, unspecified; Z72.0 Tobacco use; R94.31 Abnormal electrocardiogram [ECG] [EKG]; M54.2 Cervicalgia